=== PATIENT | male | born 1955 | race American Indian/Alaskan Native ===

== ENCOUNTER 2021-02-03 12:16 | Outpatient (CLI) | payer MEDICARE ==
--- NOTE | 2021-02-03 14:01 | XRay Report ---
LUMBAR SPINE 5 VIEWS WITH OBLIQUES 1249 INDICATION: BACK PAIN COMPARISON: None available. FINDINGS: Degenerative changes are moderately prominent in the mid to lower lumbar spine. Disc space narrowing is seen at L3-4 with mild narrowing at L2-3, L4-5, and L5-S1. No fractures or subluxations are seen. Lower facet arthritic changes are noted. Signer Name: Carmelo Reyes MD Signed: 02/03/2021 1:57 PM Workstation Name: [id number] [email or web address]
== END 2021-02-03 12:17 | disposition home or self-care (01) ==
LOC: XRAY 12:16
PROVIDERS: ATTEND Orthopaedic Surgery
DX: M47.816 Spondylosis without myelopathy or radiculopathy, lumbar region (principal); M48.061 Spinal stenosis, lumbar region without neurogenic claudication
CPT/HCPCS: 72110